=== PATIENT | female | born 1945 | race Caucasian/White ===

== ENCOUNTER 2017-11-20 09:35 | Outpatient (CLI) | payer OTHER ==
[~2017-11-20] VITALS: Ht 165.1 cm; Wt 71.7 kg
== END 2017-11-20 09:50 | disposition home or self-care (01) ==
LOC: OFIC 805 09:35
DX: H91.8X3 Other specified hearing loss, bilateral (principal); R42 Dizziness and giddiness; J30.89 Other allergic rhinitis; R09.81 Nasal congestion

== ENCOUNTER 2018-01-30 12:33 | Outpatient (CLI) | payer OTHER ==
[~2018-01-30] VITALS: Ht 152.4 cm; Wt 71.7 kg
== END 2018-01-30 12:45 | disposition home or self-care (01) ==
LOC: OFIC 805 12:33
DX: J30.89 Other allergic rhinitis (principal); R09.81 Nasal congestion; H61.21 Impacted cerumen, right ear; H90.3 Sensorineural hearing loss, bilateral

== ENCOUNTER 2022-06-03 10:48 | Outpatient (CLI) | payer OTHER | END 2022-06-03 11:06 | disposition home or self-care (01) | LOC: MAMO-SONO 10:48 | DX: N64.9 Disorder of breast, unspecified (principal) ==

== ENCOUNTER 2022-06-03 13:15 | Outpatient (CLI) | payer OTHER | END 2022-06-03 13:24 | disposition home or self-care (01) | LOC: NUCLEAR 13:15 | DX: M81.0 Age-related osteoporosis without current pathological fracture (principal); Z88.0 Allergy status to penicillin; Z88.8 Allergy status to other drugs, medicaments and biological substances; Z88.6 Allergy status to analgesic agent ==

== ENCOUNTER 2022-07-01 14:18 | Outpatient (CLI) | payer OTHER | END 2022-07-01 15:39 | disposition home or self-care (01) | LOC: SONOGRAMA 14:18 | DX: E04.2 Nontoxic multinodular goiter (principal) ==

== ENCOUNTER 2023-09-20 14:38 | Outpatient (CLI) | payer OTHER | END 2023-09-20 14:44 | disposition home or self-care (01) | LOC: RAD 14:38 | PROVIDERS: ATTEND Internal Medicine Pulmonary Disease | DX: J45.20 Mild intermittent asthma, uncomplicated (principal) ==

== ENCOUNTER 2024-04-22 15:14 | Outpatient (CLI) | payer OTHER | END 2024-04-22 15:29 | disposition home or self-care (01) | LOC: RAD 15:14 | DX: M99.01 Segmental and somatic dysfunction of cervical region (principal); E04.2 Nontoxic multinodular goiter ==

== ENCOUNTER 2024-05-30 11:28 | Outpatient (CLI) | payer OTHER | END 2024-05-30 11:32 | disposition home or self-care (01) | LOC: TOM 11:28 | PROVIDERS: ATTEND Internal Medicine Pulmonary Disease | DX: J45.30 Mild persistent asthma, uncomplicated (principal); R91.1 Solitary pulmonary nodule ==

== ENCOUNTER 2025-01-13 09:01 | Outpatient (CLI) | payer OTHER | END 2025-01-13 09:08 | disposition home or self-care (01) | LOC: SONOGRAMA 09:01 | PROVIDERS: ATTEND Internal Medicine | DX: R10.9 Unspecified abdominal pain (principal); R10.30 Lower abdominal pain, unspecified ==

== ENCOUNTER 2025-03-18 14:02 | Outpatient (CLI) | payer OTHER | END 2025-03-18 14:12 | disposition home or self-care (01) | LOC: RAD 14:02 | PROVIDERS: ATTEND Psychiatry & Neurology Clinical Neurophysiology | DX: M48.46 Fatigue fracture of vertebra, lumbar region (principal); X58.XXXS Exposure to other specified factors, sequela ==

== ENCOUNTER 2025-03-31 11:04 | Outpatient (CLI) | payer OTHER | END 2025-03-31 11:05 | disposition home or self-care (01) | LOC: NUCLEAR 11:04 | PROVIDERS: ATTEND Psychiatry & Neurology Clinical Neurophysiology | DX: Z13.820 Encounter for screening for osteoporosis (principal); M81.0 Age-related osteoporosis without current pathological fracture ==